=== PATIENT | female | born 1965 | race Caucasian/White ===

== ENCOUNTER 2017-09-09 13:23 | Emergency (ER) | payer OTHER ==
[~2017-09-09] VITALS: Ht 160 cm; Wt 129.0 kg
[~2017-09-09 13:23] MED LIST: MULTIVITAMIN1 EAC2 PO
[2017-09-09] MEDS ORDERED: KEFLEX500 MG PO (16:38)
[2017-09-09] MEDS ORDERED: NAPROXEN500 MG PO (16:38)
[2017-09-09 16:48] VITALS: BP 168/104
== END 2017-09-09 17:07 | disposition home or self-care (01) ==
LOC: EME 13:23
DX: I80.01 Phlebitis and thrombophlebitis of superficial vessels of right lower extremity (principal); L03.115 Cellulitis of right lower limb; F17.200 Nicotine dependence, unspecified, uncomplicated; Z88.0 Allergy status to penicillin
CPT/HCPCS: 93971; 99281; 99283

== ENCOUNTER 2017-11-14 03:37 | Inpatient (IN) | payer OTHER ==
[~2017-11-14] VITALS: Ht 160 cm; Wt 128.9 kg
[~2017-11-14 03:37] MED LIST changes: +KEFLEX500 MG PO; +NAPROXEN500 MG PO
[2017-11-14 05:40] VITALS: BP 141/70
[2017-11-14] MEDS ORDERED: PRADAXA150 MG PO (05:54)
[2017-11-14] MEDS ORDERED: PRILOSEC20 MG PO (05:55)
[2017-11-14] MEDS ORDERED: ERGOCALCIF50000 UNIT PO (05:56)
[2017-11-14] MEDS ORDERED: MOTRIN800 MG PO (05:57)
[2017-11-14 08:08] VITALS: BP 126/62
[2017-11-14 11:58] LABS: HEMATOCRIT 38.2 % (36.0-46.0); HEMOGLOBIN 12.1 G/DL (11.9-15.5); MCH 27.4 PG (29.0-34.0); MCHC 31.7 G/DL (30.0-36.0); MCV 86.4 FL (83-99); PLATELET COUNT 250 K/uL (156-360); RBC DIS.WIDTH-CV 14.3 % (11.8-14.6); RBC DIS.WIDTH-SD 45.7 % (39-53); RED BLOOD COUNT 4.42 M/uL (3.80-5.20); WHITE BLOOD COUNT 7.7 K/uL (4.1-10.2)
[2017-11-14 12:22] LABS: CHLORIDE 108 MEQ/L (99-109); CREATININE 0.6 MG/DL (0.6-1.3); GFR ESTIMATE (CALCULATED) > 59 mL/min/; GLUCOSE 110 mg/dL (70-99); POTASSIUM 3.8 MEQ/L (3.7-5.4); SODIUM 141 MEQ/L (136-147); UREA NITROGEN (BUN) 14 mg/dL (9-23)
[2017-11-14 12:28] VITALS: BP 130/60
[2017-11-14 15:45] VITALS: BP 134/70
[2017-11-14 19:19] VITALS: BP 143/68
[2017-11-14 23:32] VITALS: BP 130/82
[2017-11-15 04:01] VITALS: BP 142/68
[2017-11-15 08:13] VITALS: BP 152/99
[2017-11-15 15:30] VITALS: BP 131/77
[2017-11-15 23:49] VITALS: BP 145/72
[2017-11-16 06:52] LABS: HEMATOCRIT 38.1 % (36.0-46.0); MCH 26.9 PG (29.0-34.0); MCHC 31.5 G/DL (30.0-36.0); MCV 85.4 FL (83-99); PLATELET COUNT 232 K/uL (156-360); RBC DIS.WIDTH-CV 14.1 % (11.8-14.6); RBC DIS.WIDTH-SD 43.8 % (39-53); RED BLOOD COUNT 4.46 M/uL (3.80-5.20); WHITE BLOOD COUNT 7.5 K/uL (4.1-10.2)
[2017-11-16 07:17] LABS: CHLORIDE 107 MEQ/L (99-109); CREATININE 0.7 MG/DL (0.6-1.3); GFR ESTIMATE (CALCULATED) > 59 mL/min/; GLUCOSE 100 mg/dL (70-99); POTASSIUM 4.2 MEQ/L (3.7-5.4); SODIUM 142 MEQ/L (136-147); UREA NITROGEN (BUN) 12 mg/dL (9-23)
[2017-11-16 07:32] VITALS: BP 140/80
[2017-11-16] MEDS ORDERED: HYDROCODON-ACE1 EAC7 PO (10:26)
== END 2017-11-16 11:25 | disposition home or self-care (01) | DRG 605 ==
LOC: EME 03:37 → 3EAST 04:05 → EDOF 04:05 → ENRESERV 04:33 → 3EAST 05:30
PROVIDERS: Physician Assistant Surgical; Surgery
DX: S11.81XA Laceration without foreign body of other specified part of neck, initial encounter (principal); S19.89XA Other specified injuries of other specified part of neck, initial encounter; W01.118A Fall on same level from slipping, tripping and stumbling with subsequent striking against other sharp object, initial encounter; W26.9XXA Contact with unspecified sharp object(s), initial encounter; K21.9 Gastro-esophageal reflux disease without esophagitis; E66.01 Morbid (severe) obesity due to excess calories; F17.200 Nicotine dependence, unspecified, uncomplicated; Z88.0 Allergy status to penicillin; Z86.718 Personal history of other venous thrombosis and embolism; Z79.02 Long term (current) use of antithrombotics/antiplatelets; Z68.43 Body mass index [BMI] 50.0-59.9, adult
CPT/HCPCS: 80048; 85027; 93970; 99281; 99284